=== PATIENT | female | born 1955 | race Caucasian/White ===

== ENCOUNTER 2016-11-30 12:05 | Emergency (ER) | payer OTHER ==
[~2016-11-30] VITALS: Ht 167.6 cm; Wt 96.5 kg
[~2016-11-30 12:05] MED LIST: ACET1TAB40 PO; AMLO-147 PO; BENA10TA48 PO; CARV6.2579 PO; SIMV10TA PO; TRIA1TAB PO
[2016-11-30 12:12] VITALS: Ht 167.6 cm; Wt 96.5 kg
[2016-11-30] MEDS ORDERED: IPRATROPIUM (NEB) 0.5 MG/2.5 ML AMP NEB STA (13:34)
[2016-11-30] MEDS ORDERED: ALBUTEROL 0.083% (NEB) 2.5 MG/3 ML AMP NEB STA (13:34)
[2016-11-30 13:55] LABS: ADD SCAN DIFF NO
[2016-11-30 14:00] LABS: BASOPHILS % 0.5 % (0.0-2.0); EOSINOPHILS # 0.1 10^3/ul (0.0-0.5); EOSINOPHILS % 2.4 % (0.0-7.0); HEMATOCRIT 35.9 % (37.0-47.0); HEMOGLOBIN 11.8 g/dl (12.0-16.0); LYMPHOCYTES # 1.2 10^3/ul (0.8-2.9); LYMPHOCYTES % 21.8 % (15.0-51.0); MEAN CORPUSCULAR HEMOGLOBIN 29.3 pg (29.0-33.0); MEAN CORPUSCULAR HGB CONC 32.9 g/dl (32.0-37.0); MEAN CORPUSCULAR VOLUME 89.1 fl (82.0-101.0); MEAN PLATELET VOLUME 9.5 fl (7.4-10.4); MONOCYTE # 0.6 10^3/ul (0.3-0.9); MONOCYTES % 11.3 % (0.0-11.0); NEUTROPHIL # 3.5 10^3/ul (1.6-7.5); NEUTROPHILS % 63.6 % (39.0-77.0); PLATELET COUNT 336 10^3/UL (140-415); RED BLOOD COUNT 4.03 10^6/ul (4.20-5.40); RED CELL DISTRIBUTION WIDTH 12.6 % (11.5-14.5); WHITE BLOOD COUNT 5.5 10^3/ul (4.8-10.8)
[2016-11-30 14:09] LABS: ALBUMIN 4.4 g/dl (3.3-4.9); CHLORIDE 101 mmol/L (97-110)
[2016-11-30 14:10] LABS: POTASSIUM 4.5 mmol/L (3.5-5.1); SODIUM 143 mmol/L (135-144)
[2016-11-30 14:12] LABS: ALBUMIN/GLOBULIN RATIO 1.57; ALKALINE PHOSPHATASE 70 IU/L (42-121); ANION GAP 19 (8-16); ASPARTATE AMINO TRANSFERASE 27 IU/L (15-46); CARBON DIOXIDE 28 mmol/L (21-31); CREATININE 2.08 mg/dl (0.44-1.00); TOTAL PROTEIN 7.2 g/dl (6.1-8.1)
[2016-11-30 14:13] LABS: ALANINE AMINOTRANSFERASE 53 IU/L (13-69); BLOOD UREA NITROGEN 47 mg/dl (7-20); CALCIUM 10.6 mg/dl (8.4-10.2); GLUCOSE 81 mg/dl (70-220)
[2016-11-30 14:20] LABS: B-TYPE NATRIURETIC PEPTIDE 95 PG/ML (0-125)
--- NOTE | 2016-11-30 14:24 | RADRPT ---
PROCEDURE: XR Chest. CLINICAL INDICATION: Chest pain. TECHNIQUE: Single frontal view of the chest was obtained COMPARISON: Chest x-ray 11/10/2007 09:35 a.m. FINDINGS: The soft tissues are normal. The bony elements are normal. The cardiomediastinal silhouette, pulmo nary vasculature and hilar structures are normal. There is a left-sided aorta. The lungs are clear. The costophrenic angles are normal. IMPRESSION: 1. Normal chest x-ray showing no change compared to 11/10/2007. RPTAT:AAJJ Physician Anjum Date Time Electronically viewed and signed by Tarun Laws Physician on 11/30/2016 14:23 /
[2016-11-30 14:26] LABS: TROPONIN-I < 0.012 ng/ml (0.00-0.12)
--- NOTE | 2016-11-30 15:31 | ERD ---
ER Documentation Chief Complaint Date/Time DATE: 11/30/16 TIME: 15:26 Chief Complaint SOB, photosensiticity, malasie HPI Stating that she is short of breath on exertion for the past 4-5 months. She says she has a hard time walking across the room and gets out of breath. She says she never has chest pain. No cough no nausea vomiting diarrhea no dizziness no headache. The patient has chronic eye problems and is seeing a retinal specialist and is blind in her left eye. Says when she sees white colors it causes a chrome look across her visual field. No focal neurological complaints no headache no numbness weakness in her arms or legs ROS All systems reviewed and are negative except as per history of present illness. Medications Home Meds Active Scripts Acetaminophen with Codeine (Acetaminophen-Cod #3 Tablet) 1 Each Tablet, 1 TAB PO Q6H Y for PAIN, #16 TAB Prov:MIGUELANGEL CHRIS MD 07/26/16 Reported Medications Carvedilol* (Carvedilol*) 6.25 Mg Tablet, 6.25 MG PO BID, #60 TAB 03/15/16 Triamterene-HCTZ* (Triamterene-HCTZ*) 37.5 - 25 Mg Tablet, 1 TAB PO DAILY, TAB 03/15/16 Benazepril Hcl* (Benazepril Hcl*) 10 Mg Tablet, 10 MG PO DAILY, #30 TAB 03/15/16 Simvastatin* (Zocor*) 10 Mg Tablet, 10 MG PO QHS, #30 TAB 03/15/16 Amlodipine Besylate* (Amlodipine Besylate*) 10 Mg Tablet, 10 MG PO DAILY, #30 TAB 03/15/16 Allergies Allergies: Coded Allergies: No Known Allergy (Unverified , 07/26/16) PMhx/Soc History of Surgery: Yes (gallbladdr surgery) Anesthesia Reaction: No Hx Neurological Disorder: No Hx Respiratory Disorders: No Hx Cardiac Disorders: Yes (hypertension) Hx Psychiatric Problems: No Hx Miscellaneous Medical Probl: No Hx Alcohol Use: No Hx Substance Use: No Hx Tobacco Use: No Smoking Status: Unknown if ever smoked FmHx Family History: No coronary disease Physical Exam Vitals Vital Signs Date Time Temp Pulse Resp B/P Pulse Ox O2 Delivery O2 Flow Rate FiO2 11/30/16 14:11 75 18 96 21 11/30/16 12:12 98.8 71 20 105/62 98 Physical Exam Const: Well-developed, well-nourished Head: Atraumatic, normocephalic Eyes: Normal Conjunctiva, PERRLA, EOMI, normal sclera, no nystagmus ENT: Normal External Ears, Nose and Mouth, moist mucus membranes. Neck: Full range of motion. No meningismus, no lymphadenopathy. Resp: Clear to auscultation bilaterally, no wheezing, rhonchi, rales Cardio: Regular rate and rhythm, no murmurs, S1 S2 present Abd: Soft, non tender x 4, non distended. Normal bowel sounds, no guarding or rebound, no pulsitile abdominal masses or bruits Skin: No petechiae or rashes, no ecchymosis , no maculopapular rash Back: No midline or flank tenderness Ext: No cyanosis, or edema, FROM x 4, normal inspection, neurovascularly intact x 4 Neur: Awake and alert, STR 5/5 x 4, sensation intact x 4, no focal findings, cerebellum intact Psych: Normal Mood and Affect Result Diagram: 11/30/16 1335 11/30/16 1335 Results 24 hrs Laboratory Tests Test 11/30/16 13:35 Alanine Aminotransferase (ALT/SGPT) 53IU/L Albumin 4.4g/dl Albumin/Globulin Ratio 1.57 Alkaline Phosphatase 70IU/L Anion Gap 19 Aspartate Amino Transf (AST/SGOT) 27IU/L B-Type Natriuretic Peptide 95PG/ML Basophils # 0.010^3/ul Basophils % 0.5% Blood Urea Nitrogen 47mg/dl Calcium Level 10.6mg/dl Carbon Dioxide Level 28mmol/L Chloride Level 101mmol/L Creatinine 2.08mg/dl Direct Bilirubin 0.00mg/dl Eosinophils # 0.110^3/ul Eosinophils % 2.4% Globulin 2.80g/dl Glucose Level 81mg/dl Hematocrit 35.9% Hemoglobin 11.8g/dl Indirect Bilirubin 0.0mg/dl Lymphocytes # 1.210^3/ul Lymphocytes % 21.8% Mean Corpuscular Hemoglobin 29.3pg Mean Corpuscular Hemoglobin Concent 32.9g/dl Mean Corpuscular Volume 89.1fl Mean Platelet Volume 9.5fl Monocytes # 0.610^3/ul Monocytes % 11.3% Neutrophils # 3.510^3/ul Neutrophils % 63.6% Nucleated Red Blood Cells # 0.010^3/ul Nucleated Red Blood Cells % 0.0/100WBC Platelet Count 24675^3/UL Potassium Level 4.5mmol/L Red Blood Count 4.0310^6/ul Red Cell Distribution Width 12.6% Sodium Level 143mmol/L Total Bilirubin 0.0mg/dl Total Protein 7.2g/dl Troponin I < 0.012ng/ml White Blood Count 5.510^3/ul Current Medications Medications (Trade) Dose Ordered Sig/Sveta Route PRN Reason Start Time Stop Time Status Last Admin Dose Admin Albuterol (Proventil 0.083% (Neb)) 7.5 mg ONCE STAT NEB 11/30/16 13:34 11/30/16 13:36 DC 11/30/16 14:08 Ipratropium [place] (Atrovent 0.02% (Neb)) 1.5 mg ONCE STAT NEB 11/30/16 13:34 11/30/16 13:36 DC 11/30/16 14:08 Procedures/MDM PROCEDURE: XR Chest. CLINICAL INDICATION: Chest pain. TECHNIQUE: Single frontal view of the chest was obtained COMPARISON: Chest x-ray 11/10/2007 09:35 a.m. FINDINGS: The soft tissues are normal. The bony elements are normal. The cardiomediastinal silhouette, pulmonary vasculature and hilar structures are normal. There is a left-sided aorta. The lungs are clear. The costophrenic angles are normal. IMPRESSION: 1. Normal chest x-ray showing no change compared to 11/10/2007. RPTAT:AAJJ Physician Anjum Date Time Electronically viewed and signed by Physician Anjum on 11/30/2016 14:23 PEDRITO/ CC: RENNY LOZANO DO EKG: Rate/Rhythm: Normal sinus rhythm with a first-degree AV block QRS, ST, QT: NORMAL SC, QRS, QT] Impression: NORMAL EKG Advised the patient to see a mine car dispatcher this is likely a lung issue because there is no evidence of congestive heart failure or other cardiac issue here. She probably needs pulmonary function studies done. Discharge the patient says she wants a prescription for chronic headache, this possibly could be malingering for drugs Departure Diagnosis: Primary Impression: Dyspnea Dyspnea type: dyspnea on exertion Qualified Code: R06.09 - Dyspnea on exertion Condition: Stable RENNY LOZANO DO Nov 30, 2016 15:31
[2016-11-30] MEDS ORDERED: HYDR-906 PO (15:33)
[2016-11-30] MEDS ORDERED: ALBU8.5H3 INH (15:33)
[2016-11-30] MEDS ORDERED: MECL-77 PO (15:55)
[2016-11-30] MEDS ORDERED: ATOR20TA38 PO (15:55)
[2016-11-30] MEDS ORDERED: CARV12.579 PO (15:55)
== END 2016-11-30 15:47 | disposition home or self-care (01) ==
LOC: E/R 12:05
DX: R06.00 Dyspnea, unspecified (principal); R40.2142 Coma scale, eyes open, spontaneous, at arrival to emergency department; I10 Essential (primary) hypertension; R40.2252 Coma scale, best verbal response, oriented, at arrival to emergency department; R40.2362 Coma scale, best motor response, obeys commands, at arrival to emergency department
CPT/HCPCS: 71010; 80053; 83880; 84484; 85025; 93005; 94644; Z7502; Z7610

== ENCOUNTER 2016-12-25 21:06 | Emergency (ER) | payer OTHER ==
[~2016-12-25] VITALS: Ht 167.6 cm; Wt 98.5 kg
[~2016-12-25 21:06] MED LIST changes: -ACET1TAB40 PO; +ALBU8.5H3 INH; -AMLO-147 PO; +ATOR20TA38 PO; +CARV12.579 PO; -CARV6.2579 PO; +HYDR-906 PO; +MECL-77 PO; -SIMV10TA PO
[2016-12-25 21:22] VITALS: Ht 167.6 cm; Wt 98.5 kg
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
[2016-12-25] MEDS ORDERED: IBUPROFEN 600 MG TAB PO ONE (22:30)
--- NOTE | 2016-12-25 22:52 | RADRPT ---
PROCEDURE: XR Hand. CLINICAL INDICATION: Right hand pain. TECHNIQUE: Three views. Frontal, lateral, and oblique images of the right hand were obtained. COMPARISON: 07/25/2015. FINDINGS: There is no acute fracture or dislocation. There is an old healed fracture of the distal radius wit h mild deformity. The soft tissues are normal. There are degenerative changes of the fourth and fifth distal interphalangeal joint with joint space narrowing and osteophytes. There is no lytic or blastic lesion. There is no radiopaque foreign body. IMPRESSION: 1. Old healed fracture of the distal radius with mild deformity. 2. Degenerative changes of the fourth and fifth distal interphalangeal joints. 3. Otherwise unremarkable images of the right hand. RPTAT: QQ .Reinaldo Nicole MD, Date Time Electronically viewed and signed by .Reinaldo Nicole MD, on 12/25/2016 22:52 .R/
[2016-12-25] MEDS ORDERED: IBUP-1542 PO (23:02)
[2016-12-25 23:28] VITALS: BP 133/60; PULSE 85; RESP 22; TEMP 98.4
== END 2016-12-25 23:27 | disposition home or self-care (01) ==
LOC: FTE 21:06
DX: S69.91XA Unspecified injury of right wrist, hand and finger(s), initial encounter (principal); I10 Essential (primary) hypertension; Y04.0XXA Assault by unarmed brawl or fight, initial encounter
CPT/HCPCS: 29130; 73130; Z7610

== ENCOUNTER 2017-11-01 12:33 | Day surgery (SDC) | END 2017-11-01 17:45 | disposition home or self-care (01) ==

== ENCOUNTER 2018-02-21 13:12 | Emergency (ER) | END 2018-02-21 16:33 | disposition home or self-care (01) ==

== ENCOUNTER 2018-04-07 12:42 | Emergency (ER) | END 2018-04-07 15:13 | disposition home or self-care (01) ==

== ENCOUNTER 2018-04-20 13:58 | Emergency (ER) | END 2018-04-20 17:38 | disposition home or self-care (01) ==

== ENCOUNTER 2019-07-27 14:45 | Emergency (ER) | payer MEDICARE, OTHER ==
[~2019-07-27] VITALS: Ht 167.6 cm; Wt 77.0 kg
[~2019-07-27 14:45] MED LIST changes: -ALBU8.5H3 INH; +AMLO-147 ORAL; +ASPI-817 PO; -ATOR20TA38 PO; -BENA10TA48 PO; +BENA20TA4 ORAL; -CARV12.579 PO; +CARV25TA79 ORAL; +DIAZ10TA4 PO; +DYAZIDE ORAL; -HYDR-906 PO; +IBUP-1542 PO; -MECL-77 PO; +NAPR-688 ORAL; +NAPR-985 PO; +SERT50TA6 ORAL; +SIMV20TA20 ORAL; -TRIA1TAB PO
[2019-07-27 14:47] VITALS: Ht 167.6 cm; Wt 77.0 kg
[2019-07-27] MEDS ORDERED: KETOROLAC 30 MG INJ IM STA (15:38)
[2019-07-27 16:52] VITALS: BP 116/78; PULSE 78; RESP 16
== END 2019-07-27 16:58 | disposition home or self-care (01) ==
LOC: E/R 14:45
DX: R51 Headache (principal); R40.2142 Coma scale, eyes open, spontaneous, at arrival to emergency department; R40.2362 Coma scale, best motor response, obeys commands, at arrival to emergency department; R40.2252 Coma scale, best verbal response, oriented, at arrival to emergency department; I10 Essential (primary) hypertension; Z79.82 Long term (current) use of aspirin; Z86.73 Personal history of transient ischemic attack (TIA), and cerebral infarction without residual deficits
CPT/HCPCS: 70450; 96372; 99285; J1885